=== PATIENT | female | born 1990 | race Caucasian/White ===

== ENCOUNTER → 2020-09-24 15:15 | Outpatient (CLI) | payer BC, SELFPAY ==
--- NOTE | ~2020-09-24 | US_ITS ---
EXAMINATION: US thyroid EXAM DATE: 09/24/2020 15:32 INDICATION: Hypothyroidism . TECHNIQUE: Multiple grayscale and Doppler images of the thyroid were obtained (by a technologist who performed the scan) and subsequently reviewed. Individual nodules and recommendations may be reporte d in accordance with TI-RADS system as designated by the 2017 ACR White Paper TI-RADS committee. The re is no prior study for comparison. FINDINGS: Right there are lobe measures 3.6 x 1.0 x 1.0 cm, the left measuring 3.2 x 1.1 x 1.4 cm. Mildly heter ogeneous thyroid echogenicity. Dimensions are well within normal size limits. No focal nodules identi fied. IMPRESSION: 1. Unremarkable thyroid ultrasound exam. Reviewed, dictated and finalized at location G.
== END ==
PROVIDERS: PCP Physician Assistant; Visit Provider Physician Assistant
DX: E06.3 Autoimmune thyroiditis (principal); E01.0 Iodine-deficiency related diffuse (endemic) goiter
CPT/HCPCS: 76536

== ENCOUNTER 2021-02-04 17:11 | Outpatient (CLI) | payer BC, OTHER, SELFPAY ==
--- NOTE | ~2021-02-04 | XR_ITS ---
XR lumbar spine 2-3V, XR sacroiliac joints min 3V 02/04/2021 17:59 Indication: Chronic polyarticular joint pain Procedure: 3 views of the lumbar spine and 3 views of the sacroiliac joints Comparison: No prior studies for comparison. Findings: Vertebral body heights are maintained. There is mild disc narrowing at L5-S1. No acute frac ture, subluxation or dislocation. No spondylolisthesis. Sacroiliac joints are symmetric bilaterally w ithout significant joint space narrowing, erosive change or ankylosis. Sacral foramen are symmetric. Impression: 1: Mild lumbar spondylosis. 2: No significant abnormality of the sacroiliac joints. Reviewed, dictated and finalized at location A. Impression: 1: Mild lumbar spondylosis. 2: No significant abnormality of the sacroiliac joints. Impression: 1: Mild lumbar spondylosis. 2: No significant abnormality of the sacroiliac joints.
--- NOTE | ~2021-02-04 | XR_ITS ---
XR hand RT 2V, XR hand LT 2V 02/04/2021 17:58 Indication: Chronic joint pain Procedure: 2 views each hand Comparison: No prior studies for comparison. Findings: There is anatomic alignment of both hands. No significant joint space narrowing. No fractur e, subluxation or dislocation. No significant soft tissue abnormality. No foreign bodies. Impression: 1: No significant bone or joint abnormality. Reviewed, dictated and finalized at location A. Impression: 1: No significant bone or joint abnormality. Impression: 1: No significant bone or joint abnormality.
--- NOTE | ~2021-02-04 | XR_ITS ---
XR foot RT 2V, XR foot LT 2V 02/04/2021 18:00 Indication: Polyarticular joint pain Procedure: 2 views of each foot Comparison: No prior studies for comparison. Findings: No fracture, subluxation or dislocation. There is anatomic alignment of both feet. No erosi ve changes. No focal soft tissue abnormality. No foreign bodies. Lisfranc joint is intact bilaterally . Impression: 1: No significant bone or joint abnormality. Reviewed, dictated and finalized at location A. Impression: 1: No significant bone or joint abnormality. Impression: 1: No significant bone or joint abnormality.
== END 2021-02-04 17:12 | disposition home or self-care (01) ==
LOC: ANHIMG 17:25
PROVIDERS: PCP Physician Assistant; Visit Provider Physician Assistant Medical
DX: M25.50 Pain in unspecified joint (principal); G89.29 Other chronic pain; R53.83 Other fatigue; M47.896 Other spondylosis, lumbar region
CPT/HCPCS: 72100; 72202; 73120; 73620

== ENCOUNTER → 2021-11-20 09:05 | Outpatient (CLI) | payer BC, SELFPAY ==
--- NOTE | ~2021-11-20 | US_ITS ---
US abdomen complete EXAMINATION: US Abdomen Complete INDICATION: Abdominal pain and diarrhea PROCEDURE: Realtime High Resolution abdomen ultrasound. COMPARISON: No prior studies for comparison FINDINGS: Gallbladder within normal limits. No gallstones, pericholecystic fluid, gallbladder wall t hickening or biliary dilatation. Common bile duct measures 3 mm. Liver echotexture within normal limits without focal mass. Pancreas within normal limits. Pancreati c tail is obscured by bowel gas. Spleen is unremarkeable. Renal echotexture is within normal limits bilaterally without hydronephrosis, contour deforming mass or renal stone. Right kidney measures 9.8 cm. Left kidney measures 10.7 cm. Visualized aspects of the aorta and IVC are within normal limits. Portal vein is patent. No sonograph ic Miller's sign indicated by the technologist. IMPRESSION: 1: Normal abdominal ultrasound. Reviewed, dictated and finalized at location A.
== END ==
PROVIDERS: PCP Physician Assistant; Visit Provider Physician Assistant
DX: R19.7 Diarrhea, unspecified (principal)
CPT/HCPCS: 76700